=== PATIENT | female | born 1950 | race Caucasian/White ===

== ENCOUNTER → 2017-09-12 | Emergency (ER) | payer MEDICARE, OTHER ==
[2017-09-12 21:59] LABS: #Basophils 0.1 thou/uL (0.0-0.2); #Eosinphils 0.1 thou/uL (0.0-0.7); #Lymphocytes 2.9 thou/uL (1.20-3.40); #Monocytes 0.6 thou/uL (0.11-0.59); #Neutrophils 7.3 thou/uL (1.40-6.50); %Basophils 0.5 % (0.0-1.0); %Eosinophils 0.6 % (0.0-10.0); %Lymphocytes 26.7 % (21.0-51.0); %Monocytes 5.3 % (0.0-10.0); Hemoglobin 15.5 g/dL (12.0-16.0); Mean Corpuscular HGB CONC 33.8 g/dL (32.0-36.0); Mean Corpuscular Hemoglobin 30.5 pg (27.0-31.0); Mean Corpuscular Volume 90.3 fl (81.0-99.0); Mean Platelet Volume 6.9 fL (7.4-10.4); Platelet Count 264 thou/uL (130-400); RBC Distribution Width 11.6 % (11.5-14.5); Red Blood Cell (RBC) Count 5.09 mill/uL (4.20-5.40); White Blood Cell (WBC) Count 10.9 thou/uL (4.8-10.8)
[2017-09-12 22:03] LABS: INR-International Normal Ratio 0.9; PTT 31.5 SEC (22.9-36.1); Prothrombin Time 12.4 SEC (12.0-14.7)
[2017-09-12 22:10] LABS: D-Dimer Test Less than 0.27 *mcg/mL (0.27-0.43)
[2017-09-12 22:12] LABS: ALT (SGPT) 21 U/L (8-55); AST (SGOT) 20 U/L (5-34); Albumin 4.4 g/dL (3.4-4.8); Alkaline Phosphatase 94 U/L (40-150); Anion Gap 19 mmol/L (10-20); BUN (Urea Nitrogen) 20 mg/dL (9.8-20.1); Bilirubin, Total 0.2 mg/dL (0.2-1.2); CK (CPK) 111 U/L (29-168); Calc. Creatinine Clearance 0 mL/min (70-130); Calcium 10.3 mg/dL (7.8-10.44); Carbon Dioxide 22 mmol/L (23-31); Chloride 107 mmol/L (98-107); Estimated GFR-MDRD 51; Globulin 3.2 g/dL (2.4-3.5); Glucose 180 mg/dL (80-115); Potassium 3.7 mmol/L (3.5-5.1); Protein, Total 7.6 g/dL (6.0-8.3); Sodium 144 mmol/L (136-145)
[2017-09-12 22:13] LABS: CKMB 4.6 ng/mL (0-6.6)
--- NOTE | 2017-09-12 23:19 | RAD ---
PORTABLE CHEST: Date: 09-12-17 An AP portable film taken at 2151 is presented with no prior films available for comparison. FINDINGS: The heart is normal in size and the lungs are clear. There is no vascular congestion, edema, or pleu ral effusion. Faint calcification is seen in the aortic arch. The trachea is midline and the bony st ructures show no acute change. IMPRESSION: Arterial sclerotic calcification but no acute findings. POS: HOME
== END ==
LOC: BURERS 21:35
DX: R07.2 Precordial pain (principal); R00.2 Palpitations; R74.8 Abnormal levels of other serum enzymes; I10 Essential (primary) hypertension; I42.9 Cardiomyopathy, unspecified; E11.9 Type 2 diabetes mellitus without complications; I48.91 Unspecified atrial fibrillation; Z87.891 Personal history of nicotine dependence; E03.9 Hypothyroidism, unspecified; Z79.82 Long term (current) use of aspirin; Z79.899 Other long term (current) drug therapy
CPT/HCPCS: 36416; 71010; 80053; 82553; 83880; 84484; 85025; 85379; 85610; 85730; 93005; 94760

== ENCOUNTER 2022-01-21 11:18 | Outpatient (CLI) | payer MEDICARE, OTHER | END 2022-01-21 11:19 | disposition home or self-care (01) | LOC: BURRAD 11:18 | PROVIDERS: ATTEND Family Medicine | DX: R05.3 Chronic cough (principal); E11.9 Type 2 diabetes mellitus without complications | CPT/HCPCS: 71046 ==